=== PATIENT | male | born 1980 | race Caucasian/White ===

== ENCOUNTER 2022-11-17 10:06 | Emergency (ER) | payer OTHER, SELFPAY ==
[2022-11-17 10:19] VITALS: BP 135/90; PULSE 76; RESP 19; TEMP 36.9; O2SAT 97; BMI 32.1
--- NOTE | 2022-11-17 10:42 | ED_ITS ---
HPI - Dental/Oral General Chief complaint: Dental/Oral Stated complaint: dental problem, nausea, fatigue, bloating Time Seen by Provider: 11/17/22 10:12 History of Present Illness HPI Narrative: 41-year-old male smoker with extensive dental history [facility]. Patient states he is had multiple dental procedures including multiple crowns and root canal since September. He had relatively recently been put on antibiotics by his dentist and reports that after his most recent dental procedure he felt bacteria running down his throat and in the past few weeks has had off and on episodes of chest pain, bloating and abdominal pain and is concerned that they may be related. He is not currently having any discomfort. He states that the chest pain is retrosternal and seems to come and go with a mind of its own. He denies any exertional symptoms and reports no exercise intolerance. He denies any radiation of this discomfort. He is had no cough or shortness of breath. He denies any cardiac history, he is had no prior blood clots or known cancer. He denies any lower extremity numbness, tingling or weakness. Additionally he states that he has been having episodes of abdominal bloating that seemed to com e and go and his weight is fluctuating. He denies any specific local abdominal pain, no obvious provocation, palliation or radiation. No change in his bowel habits such as constipation or diarrhea and no dysuria, frequency or urgency Related Data Allergies Allergy/AdvReac Type Severity Reaction Status Date / Time No Known Drug Allergies Allergy Verified 11/17/22 10:24 Review of Systems Review of Systems Narrative: GENERAL: See HPI HEENT: See HPI RESPIRATORY: See HPI CARDIOVASCULAR: See HPI GASTROINTESTINAL: See HPI : Denies dysuria, frequency, incontinence, hematuria, urinary retention. MUSCULOSKELETAL: denies weakness, joint pain, or bony pain SKIN: Denies rash, skin lesions, or other NEUROLOGIC: Denies weakness, headache, numbness, change in speech, confusion, seizures, incoordination. PSYCHIATRIC: No concerning psychosocial issues. 12 point review of systems is negative except for those stated above Patient History Social History Smoking Status: Current every day smoker Smoking Status: Current every day smoker tobacco type: cigarettes alcohol intake frequency: a few times a month Substance Use Type: does not use Exam Narrative Exam Narrative: GENERAL: [41] year old patient appears stated age. Well-developed patient, in mild distress. HEAD: Atraumatic. Normocephalic. EYES: Pupils equal round and reactive. Extraocular motions intact. No scleral icterus. No injection or drainage. ENT: Nose without bleeding, purulent drainage. Throat without erythema, tonsi llar hypertrophy or exudate. Airway patent. NECK: Trachea midline. Non tender CARDIOVASCULAR: Regular rate and rhythm without murmurs, gallops, or rubs. RESPIRATORY: Clear to auscultation. Breath sounds equal bilaterally. No wheezes, rales, or rhonchi. GASTROINTESTINAL: Abdomen soft, non-tender, nondistended. EXTREMITIES: No edema or joint tenderness. BACK: Nontender without deformity or crepitance. No flank tenderness. NEURO: AOx3. SKIN: No rash or erythema of visible areas Initial Vital Signs Initial Vital Signs: Vital Signs Temperature 98.4 F 11/17/22 10:19 Pulse Rate 76 11/17/22 10:19 Respiratory Rate 19 11/17/22 10:19 Blood Pressure 135/90 11/17/22 10:19 Pulse Oximetry 97 11/17/22 10:19 Oxygen Delivery Method 11/17/22 10:19 Scores HEART Score Heart Score history: Slightly Suspicious Heart Score EKG: Normal Heart Score Age: < 45 years old Heart Score risk factors: No known risk factors Heart Score troponin: < or = to normal limit Heart Score Total: 0 Course Orders Ordered: ED Orders 11/17/22 10:28 EKG-12 Lead Stat 11/17/22 11:38 XR acute abdomen series Stat 11/17/22 11:49 C-Reactive Protein Quant Stat Complete Blood Count AUTO DIFF Stat Comprehensive Metabolic Panel Stat D Dimer Stat ESR [Erythrocyte Sedimentation Rate] Stat Lipase Stat Magnesium Stat NT-proBNP (BNP-Adult 18+) Stat Prothrombin Time INR Stat Troponin & CK Cardiac Panel Stat Vital Signs Vital signs: Vital Signs - 8 hr 11/17/22 10:19 11/17/22 12:22 11/17/22 12:26 Temperature 98.4 F Pulse Rate 76 56 L 54 L Respiratory Rate 19 13 Blood Pressure 135/90 Pulse Oximetry 97 96 96 Oxygen Delivery Method Room Air Room Air Room Air 11/17/22 12:26 Temperature Pulse Rate Respiratory Rate Blood Pressure 128/83 Pulse Oximetry Oxygen Delivery Method MDM - Dental/Oral Lab Data Result diagrams: 11/17/22 11:49 11/17/22 11:49 Labs: Lab Results 11/17/22 11/17/22 11/17/22 Range/Units 11:49 11:49 11:49 WBC 7.1 (4.5-11.0) X10^3/uL RBC 4.91 (4.5-5.9) X10^6/uL Hgb 15.8 (13.5-17.5) g/dL Hct 44.6 (41-53) % MCV 90.8 (80-100) fL MCH 32.3 (26-34) PG MCHC 35.6 (30-36) % RDW 12.4 (11.6-14.8) % Plt Count 269 (150-400) X10^3/uL Neut % (Auto) 67.4 (50-75) % Lymph % (Auto) 20.9 L (25-40) % [place] % (Auto) 6.4 (3-14) % Eos % (Auto) 4.6 H (2-4) % Baso % (Auto) 0.7 (0-2) % Neut # (Auto) 4800 (3005-9866) /uL Lymph # (Auto) 1500 (8099-0015) /uL [place] # (Auto) 500 (0-900) /uL Eos # (Auto) 300 (0-450) /uL Baso # (Auto) 100 (0-100) /uL ESR 2 (0-15) MM/HR PT (10.1-12.7) SECONDS INR (0.9-1.3) D-Dimer < 215 (<500) ng/ml Sodium 139 (137-145) mmol/L Potassium 4.0 (3.4-5.1) mmol/L Chloride 102 (98-107) mmol/L Carbon Dioxide 28 (22-32) mmol/L BUN 14 (9-20) mg/dL Creatinine 0.96 (0.66-1.25) mg/dL Estimated GFR > 60 (>60) mL/min BUN/Creatinine Ratio 14.6 (6-22) Glucose 99 (70-100) mg/dL Calcium 9.3 (8.4-10.2) mg/dL Magnesium 1.9 (1.6-2.3) mg/dL Total Bilirubin 0.5 (0.2-1.3) mg/dL AST 31 (17-59) IU/L ALT 33 (<50) IU/L Alkaline Phosphatase 69 (38-126) U/L Total Creatine Kinase (55-170) U/L CK-MB (CK-2) (<2.37) ng/mL CK-MB (CK-2) Rel Index (1.5-5.0) % Troponin I (0.01-0.034) ng/mL C-Reactive Protein < 0.5 (<1.0) mg/dL NT-Pro-B Natriuret Pep (<125) pg/mL Total Protein 7.3 (6.3-8.2) g/dL Lipase 147 (23-300) U/L 11/17/22 11/17/22 Range/Units 11:49 11:49 WBC (4.5-11.0) X10^3/uL RBC (4.5-5.9) X10^6/uL Hgb (13.5-17.5) g/dL Hct (41-53) % MCV (80-100) fL MCH (26-34) PG MCHC (30-36) % RDW (11.6-14.8) % Plt Count (150-400) X10^3/uL Neut % (Auto) (50-75) % Lymph % (Auto) (25-40) % [place] % (Auto) (3-14) % Eos % (Auto) (2-4) % Baso % (Auto) (0-2) % Neut # (Auto) (7546-8452) /uL Lymph # (Auto) (2672-1925) /uL [place] # (Auto) (0-900) /uL Eos # (Auto) (0-450) /uL Baso # (Auto) (0-100) /uL ESR (0-15) MM/HR PT 11.2 (10.1-12.7) SECONDS INR 1.0 (0.9-1.3) D-Dimer (<500) ng/ml Sodium (137-145) mmol/L Potassium (3.4-5.1) mmol/L Chloride (98-107) mmol/L Carbon Dioxide (22-32) mmol/L BUN (9-20) mg/dL Creatinine (0.66-1.25) mg/dL Estimated GFR (>60) mL/min BUN/Creatinine Ratio (6-22) Glucose (70-100) mg/dL Calcium (8.4-10.2) mg/dL Magnesium (1.6-2.3) mg/dL Total Bilirubin (0.2-1.3) mg/dL AST (17-59) IU/L ALT (<50) IU/L Alkaline Phosphatase (38-126) U/L Total Creatine Kinase 143 (55-170) U/L CK-MB (CK-2) 0.60 (<2.37) ng/mL CK-MB (CK-2) Rel Index 0.4 L (1.5-5.0) % Troponin I < 0.012 (0.01-0.034) ng/mL C-Reactive Protein (<1.0) mg/dL NT-Pro-B Natriuret Pep 56 (<125) pg/mL Total Protein (6.3-8.2) g/dL Lipase (23-300) U/L Imaging Data Abdominal x-ray: Radiologist's Impression: Yaakov Morgan??41??M??1980 ? Allergy/Adv: No Known Drug Allergies Close Chest/Abdomen X-ray (Signed) Karely Sanchez - 11/17/22 [place] [address] XRay Report Signed Patient: Yaakov Morgan MR#: [id number] : 1980 Acct:[id number] Age/Sex: 41 / M Date of Service: 11/17/22 Loc: ED Accession Number: [id number] ?? Procedure: XR acute abdomen series Ordering Provider: Sedrick Traylor D.O. PROCEDURE:? XR ACUTE ABDOMEN SERIES ? INDICATIONS:? Abdominal pain, chest pain ? TECHNIQUE:? One view chest and two views of the abdomen were acquired.? ? COMPARISON:? None. ? FINDINGS:? ? Surgical changes and devices:? None.? ? Chest:? Lungs are clear.? Heart size is normal.? No pleural effusions.? No pneumoperitoneum.? ? Abdomen:? Bowel gas pattern is nonspecific.? There is a small focus of slightly prominent small bowel loops within the central abdomen.? Significant colonic stool is present.? No suspicious calcifications.? Visualized solid organ contours appear normal.? ? Bones:? No suspicious bony lesions.? ? IMPRESSION:? Constipation with slight prominence of central bowel loops in the central abdomen, overall nonspecific.? Developing obstruction cannot be excluded appearance ? ? Dictated by: Karely Sanchez M.D. on 11/17/2022 at 12:36 ? ? Approved by: Karely Sanchez M.D. on 11/17/2022 at 12:37 ? ECG Data Interpretation: [1035] EKG is normal sinus rhythm rate [62] and free of any signs of ischemia or ectopy. No ST segmental elevation or depression. No T wave inversions MDM Narrative Medical decision making narrative: CC: 41-year-old with out chronic medical history presents with vague episodes of chest pressure and abdominal bloating for the past few weeks. Complicating co-morbidities: Chronic dental pain Data collected from: Patient Medical records reviewed: No other notes in our EMR Differential considered, but not limited to: Viral upper respiratory infection, pneumonia, cardiac ischemia, pulmonary embolism, gallbladder disease, pancreatitis, constipation, bowel obstruction versus other Exam documented above, pertinent findings include: Patient in no respiratory distress, clear lung sounds no tachycardia. Abdomen is soft and nontender, bowel sounds present. Lab Test results independently reviewed as above. Pertinent findings: Independently reviewed EKG as above Imaging studies independently reviewed: Lungs are clear, constipation, slight prominence of central bowel loops nonspecific, could be developing obstruction in proper clinical setting Scores Used: HEART Discussion: Patient with various complaints off and on for the past few weeks if not months. Chest pressure comes and goes, there is no exertional component, does not radiate nor is it associated with unexplained diaphoresis, exercise intolerance, normal troponin, low heart score and no ischemic change on EKG. Pulmonary embolism considered given history of travel, however D-dimer well below age corrected cutoff in no indication to pursue further with advanced imaging. Colicky type abdominal discomfort and bloating likely due to constipation based on patient's presentation. Exam is very reassuring and there is no reproducible pain. Labs reassuring, x-ray suggestive of constipation. Bowel obstruction considered but thought extremely unlikely given lack of ongoing pain, ongoing passage of gas, bowel movements and no vomiting. Disposition: see below, along with detailed discharge instructions that have been reviewed with patient as well as indications for ED re-evaluation and additional outpatient follow up Discharge Plan Departure Patient Disposition: Home Clinical Impression: Atypical chest pain, Constipation Instructions: DI for Constipation Activity Restrictions/Additional Instructions: *You have been diagnosed with [atypical chest pain and abdominal pain due to constipation. As we discussed your history and physical exam are reassuring. Your EKG, labs as well as history would strongly suggest against the likelihood of heart attack or cardiac disease. Labs would suggest against blood clot. There is no evidence of pneumonia] *What to do: *Take over the counter medications as directed: 1. Metamucil - is a bulk forming laxative and adds fiber 2. Colace - softens your stool 3. Dulcolax suppository - stimulates your bowels *Follow up with your primary care provider in 2-3 days, call for appointment *Return to ER if you should have any new, worsening or concerning symptoms *Drink plenty of water and eat foods high in fiber *Stay as active as you can as this helps move your bowels as well Stand Alone Forms: Patient Portal/API
--- NOTE | 2022-11-17 11:38 | DI.RAD.S_ITS ---
PROCEDURE: XR ACUTE ABDOMEN SERIES INDICATIONS: Abdominal pain, chest pain TECHNIQUE: One view chest and two views of the abdomen were acquired. COMPARISON: None. FINDINGS: Surgical changes and devices: None. Chest: Lungs are clear. Heart size is normal. No pleural effusions. No pneumoperitoneum. Abdomen: Bowel gas pattern is nonspecific. There is a small focus of slightly prominent small bowel loops within the central abdomen. Significant colonic stool is present. No suspicious calcifications. Visualized solid organ contours appear normal. Bones: No suspicious bony lesions. IMPRESSION: Constipation with slight prominence of central bowel loops in the central abdomen, overall nonspecific. Developing obstruction cannot be excluded appearance Dictated by: Karely Sanchez M.D. on 11/17/2022 at 12:36 Approved by: Karely Sanchez M.D. on 11/17/2022 at 12:37
[2022-11-17 12:11] LABS: Add Manual Diff / Slide Review NO; Basophils Absolute Auto 100 /uL (0-100); Basophils Percent Auto 0.7 % (0-2); Eosinophils Absolute Auto 300 /uL (0-450); Eosinophils Percent Auto 4.6 % (2-4); Hematocrit 44.6 % (41-53); Hemoglobin 15.8 g/dL (13.5-17.5); Lymphocytes Absolute Auto 1500 /uL (1100-4500); Lymphocytes Percent Auto 20.9 % (25-40); Mean Corpuscular HGB Conc 35.6 % (30-36); Mean Corpuscular Hemoglobin 32.3 PG (26-34); Mean Corpuscular Volume 90.8 fL (80-100); Monocytes Absolute Auto 500 /uL (0-900); Monocytes Percent Auto 6.4 % (3-14); Neutrophils Absolute Auto 4800 /uL (1500-7000); Neutrophils Percent Auto 67.4 % (50-75); Platelet Count 269 X10^3/uL (150-400); Red Blood Cell Count 4.91 X10^6/uL (4.5-5.9); Red Cell Distribution Width 12.4 % (11.6-14.8); White Blood Cell Count 7.1 X10^3/uL (4.5-11.0)
[2022-11-17 12:22] VITALS: PULSE 56; O2SAT 96
[2022-11-17 12:24] LABS: D Dimer < 215 ng/ml (<500)
[2022-11-17 12:26] VITALS: BP 128/83; PULSE 54; RESP 13; O2SAT 96
[2022-11-17 12:28] LABS: Erythrocyte Sedimentation Rate 2 MM/HR (0-15)
[2022-11-17 12:29] LABS: Prothrombin Time 11.2 SECONDS (10.1-12.7)
[2022-11-17 12:30] VITALS: BP 111/63; PULSE 54; RESP 15; O2SAT 95
[2022-11-17 12:35] LABS: Creatine Kinase 143 U/L (55-170)
[2022-11-17 12:37] LABS: Alanine Aminotransferase 33 IU/L (<50); Alkaline Phosphatase 69 U/L (38-126); Aspartate Aminotransferase 31 IU/L (17-59); BUN Creatinine Ratio 14.6 (6-22); Bilirubin Total 0.5 mg/dL (0.2-1.3); Blood Urea Nitrogen 14 mg/dL (9-20); C-Reactive Protein Quant < 0.5 mg/dL (<1.0); Calcium 9.3 mg/dL (8.4-10.2); Carbon Dioxide 28 mmol/L (22-32); Chloride 102 mmol/L (98-107); Estimated Glomerular Filt Rate > 60 mL/min (>60); Glucose 99 mg/dL (70-100); HEMOLYSIS < 15 (0-50); Lipase 147 U/L (23-300); Magnesium 1.9 mg/dL (1.6-2.3); Sodium 139 mmol/L (137-145); Total Protein 7.3 g/dL (6.3-8.2)
[2022-11-17 12:46] LABS: NT-proBNP (BNP-Adult 18+) 56 pg/mL (<125); Troponin I < 0.012 ng/mL (0.01-0.034)
[2022-11-17 12:50] LABS: CKMB % Relative Index 0.4 % (1.5-5.0)
[2022-11-17 13:00] VITALS: PULSE 54; RESP 20; O2SAT 97
[2022-11-17 13:01] VITALS: BP 108/62; PULSE 53; RESP 22; O2SAT 96
[2022-11-20 16:15] LABS: Albumin 4.5 g/dL (3.5-5.0); Albumin Globulin Ratio 1.6 (1.0-2.8); Globulin 2.8 g/dL (1.7-4.1)
== END 2022-11-17 13:14 | disposition home or self-care (01) ==
PROVIDERS: Emergency Provider Emergency Medicine
DX: R07.89 Other chest pain (principal); R10.9 Unspecified abdominal pain; K59.00 Constipation, unspecified; K08.89 Other specified disorders of teeth and supporting structures
CPT/HCPCS: 36415; 74022; 80053; 82550; 82553; 83690; 83735; 83880; 84484; 85025; 85379; 85610; 85651; 86140; 93005; 99284